=== PATIENT | female | born 1980 | race African-American/Black ===

== ENCOUNTER 2018-11-14 08:32 | Emergency (ER) | payer OTHER ==
[~2018-11-14] VITALS: Ht 160 cm; Wt 90.4 kg
[2018-11-14 08:32] VITALS: BP 117/62
[~2018-11-14 08:32] MED LIST: NO HOME MEDICATION
[2018-11-14] MEDS ORDERED: IBUPROFEN 600 MG TABLET. PO ONE (09:15)
[2018-11-14] MEDS ORDERED: AMOXICILLIN/K CLAV 875/125MG TABLET. PO ONE (09:15)
[2018-11-14] MEDS ORDERED: DEXAMETHASONE 4 MG TABLET PO ONE (09:30)
[2018-11-14] MEDS ORDERED: AMOX1TAB61 PO (09:39)
[2018-11-14] MEDS ORDERED: NEOM10DR32 RIGHT EAR (09:39)
--- NOTE | 2018-11-14 09:39 | PHYS DOC ---
Past History Past Medical History: No Pertinent History Past Surgical History: No Surgical History, Smoking: Non-smoker Alcohol Use: Occasionally Drug Use: None Adult General Chief Complaint Chief Complaint: EARACHE/EAR PAIN HPI HPI 37-year-old female presents with right earache which is been ongoing for the past several days. Patient reports she had previously noted having some increased discharge from her ear but was not painful. Patient denies fever or chills. Denies known trauma. Review of Systems Review of Systems Constitutional: Denies fever or chills Eyes: Denies redness or eye pain HENT: Reports right earache; denies nasal congestion Respiratory: Denies cough or shortness of breath Cardiovascular: Denies chest pain or palpitations GI: Denies abdominal pain, nausea, or vomiting : Denies dysuria or hematuria Musculoskeletal: Denies back pain or joint pain Integument: Denies rash or skin lesions Neurologic: Denies headache, focal weakness or sensory changes Complete systems were reviewed and found to be within normal limits, except as documented in this note. Current Medications Current Medications Current Medications Medications (Trade) Dose Ordered Sig/Jessica Start Time Stop Time Status Last Admin Dose Admin Amoxicillin/ Clavulanate Potassium (Augmentin 875/ 125mg) 1 tab 1X ONCE 11/14/18 09:15 11/14/18 09:16 DC 11/14/18 09:02 1 TAB Dexamethasone (Decadron) 10 mg 1X ONCE 11/14/18 09:30 11/14/18 09:31 DC 11/14/18 09:02 10 MG Ibuprofen (Motrin) 600 mg 1X ONCE 11/14/18 09:15 11/14/18 09:16 DC 11/14/18 09:03 600 MG Allergies Allergies Allergies Coded Allergies Type Severity Reaction Last Updated Verified acetaminophen Allergy Unknown 10/03/15 Yes iodine Allergy Unknown 10/03/15 Yes oxycodone Allergy Unknown 10/03/15 Yes Uncoded Allergies Type Severity Reaction Last Updated Verified SHELLFISH Allergy Unknown 10/03/15 Physical Exam Physical Exam Constitutional: Well developed, well nourished, no acute distress, non-toxic appearance HENT: Normocephalic, atraumatic, oropharynx moist, right external ear canal swelling and induration, small roy noted, 50% decrease in canal diameter Eyes: Conjunctiva normal, no discharge Neck: Normal range of motion, no tenderness, supple, right anterior cervical lymphadenopathy noted Cardiovascular: Heart rate normal, regular rhythm Lungs & Thorax: Bilateral breath sounds clear to auscultation, no wheezing Skin: Warm, dry, no erythema, no rash Neurologic: Alert and oriented X 3, no focal deficits noted Psychologic: Affect normal, judgement normal Current Patient Data Vital Signs Vital Signs Date Time Temp Pulse Resp B/P (MAP) Pulse Ox O2 Delivery O2 Flow Rate FiO2 11/14/18 08:32 99.0 90 16 98 Room Air EKG EKG [] Radiology/Procedures Radiology/Procedures [] Course & Med Decision Making Course & Med Decision Making Patient presents with history of present illness and physical exam consistent for right external ear canal abscess/cellulitis. Small roy noted which was opened with expression. Empiric antibiotics initiated. Pain addressed. Patient stable for discharge with outpatient follow-up with PCP. Discussed findings and plan with patient and family, who acknowledge understanding and agreement. Dragon Disclaimer Dragon Disclaimer This electronic medical record was generated, in whole or in part, using a voice recognition dictation system. Departure Departure: Impression: Primary Impression: Abscess of right ear canal Disposition: 01 HOME, SELF-CARE Condition: STABLE Referrals: ARUNA GRADY MD (PCP) Patient Instructions: Abscess, [id number], Otitis Externa, Ahip-iq-Rjnt Scripts Tramadol Hcl (TRAMADOL HCL) 50 Mg Tablet 50 MG PO PRN Q6HRS PRN for PAIN, #14 TAB Take each tablet with one (1) regular strength Tylenol 325mg Prov: JOSE C OVERTON DO 11/14/18 Neomycin/Polymyxin B Sulf/Hc (FRRNYDLM-[id number]-RC EAR SUSP) 10 Ml Drops.susp 4 DROP RIGHT EAR TID for Otitis Externa for 7 Days, #10 ML Prov: JOSE C OVERTON DO 11/14/18 Amoxicillin/Potassium Clav (AUGMENTIN 875-125 TABLET) 1 Each Tablet 1 TAB PO BID for abscess, #14 TAB Prov: JOSE C VOERTON DO 11/14/18 JOSE C OVERTON DO Nov 14, 2018 09:39
[2018-11-14] MEDS ORDERED: traMADol 50 MG TABLET ONE (09:53)
[2018-11-14] MEDS ORDERED: TRAM50TA PO (09:53)
[2018-11-14] MEDS ORDERED: traMADol 50 MG TABLET PO ONE (10:00)
== END 2018-11-14 10:00 | disposition home or self-care (01) ==
LOC: ER 08:32
DX: H60.01 Abscess of right external ear (principal); Z88.6 Allergy status to analgesic agent; Z88.8 Allergy status to other drugs, medicaments and biological substances; Z88.5 Allergy status to narcotic agent
CPT/HCPCS: 99284; J8540

== ENCOUNTER 2018-12-06 12:46 | Emergency (ER) | payer OTHER ==
[~2018-12-06] VITALS: Ht 160 cm; Wt 89.4 kg
[~2018-12-06 12:46] MED LIST changes: +AMOX1TAB61 PO; +NEOM10DR32 RIGHT EAR; +TRAM50TA PO
[2018-12-06] MEDS ORDERED: IBUPROFEN 400 MG TABLET. PO ONE (14:15)
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
[2018-12-06 15:17] VITALS: BP 115/64
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
== END 2018-12-06 15:15 | disposition home or self-care (01) ==
LOC: ER 12:46 → EEVIPCON 12:46 → ER 15:15
DX: S40.022A Contusion of left upper arm, initial encounter (principal); S40.021A Contusion of right upper arm, initial encounter; S20.229A Contusion of unspecified back wall of thorax, initial encounter; S00.83XA Contusion of other part of head, initial encounter; Z88.6 Allergy status to analgesic agent; Z88.8 Allergy status to other drugs, medicaments and biological substances; Z88.5 Allergy status to narcotic agent; Y08.89XA Assault by other specified means, initial encounter; Y93.89 Activity, other specified; Y92.89 Other specified places as the place of occurrence of the external cause; Y99.8 Other external cause status
CPT/HCPCS: 71101; 99284